=== PATIENT | male | born 1975 | race African-American/Black ===

== ENCOUNTER 2017-08-22 18:11 | Emergency (ER) | payer BC, OTHER ==
[~2017-08-22] VITALS: Ht 170.2 cm; Wt 117.9 kg
[2017-08-22] MEDS ORDERED: KETOROLAC 60 MG/2 ML VIAL IM ONE (19:00)
[2017-08-22] MEDS ORDERED: CYCL10TA9 PO (19:02)
[2017-08-22] MEDS ORDERED: METH4TAB PO (19:02)
--- NOTE | 2017-08-22 19:04 | ED Back Pain ---
General Chief Complaint: General Problems/Pain Stated Complaint: HIP,BACK,THIGH PAIN;RIGHT SIDE Nursing Triage Note: AMB TO ROOM C/O R HIP AND THIGH PAIN FOR ON AND OFF FOR 2 YEARS. 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) History of Present Illness Date Seen by Provider: Aug 22, 2017 Time Seen by Provider: 18:35 Initial Comments PT ARRIVES VIA POV--STATES HE DROVE HIMSELF C/O LOWER BACK PAIN, MOSTLY ON THE RIGHT, THAT RADIATES TO RIGHT LATERAL HIP AREA AND DOWN ANTERIOR RIGHT THIGH STATES THIS HAS BEEN GOING ON FOR OVER 2 YEARS NO INJURY AT ANY TIME STATES IT "FLARED UP A COUPLE OF WEEKS AGO" STATES PAIN IS ONLY WITH STANDING NO PARESTHESIAS OR MOTOR DEFICITS NO PROBLEMS WITH BOWEL OR BLADDER FUNCTION TOOK TYLENOL SOMETIME EARLIER TODAY--THINKS AROUND 1300 TODAY, AND HAS APPLIED OVER THE COUNTER TOPICAL MEDICATION WITHOUT RELIEF. STATES HE HAS NEVER SOUGHT CARE AT ANY TIME FOR THIS PROBLEM, AND SYMPTOMS NOW ARE EXACTLY THE SAME AND NO DIFFERENT IN ANY WAY FROM WHAT HE HAS EXPERIENCED IN THE PAST. 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 PT STATES HE IS FROM [place] AND IS "HERE VISITING A FRIEND FOR THE WEEKEND" ( TODAY IS SUNDAY ) Allergies and Home Medications Allergies Coded Allergies: aspirin (Verified Allergy, Unknown, 08/22/17) Home Medications Cyclobenzaprine HCl 10 Mg Tablet, 10 MG PO Q8H Prescribed by: FREDDIE MCCLAIN on 08/22/171901 Methylprednisolone 4 Mg Tab.ds.pk, 4 MG PO UD Prescribed by: FREDDIE MCCLAIN on 08/22/171901 Patient Home Medication List Home Medication List Reviewed: Yes Constitutional: no symptoms reported Gastrointestinal: no symptoms reported Genitourinary: no symptoms reported Musculoskeletal: see HPI Skin: no symptoms reported Psychiatric/Neurological: No Symptoms Reported Past Nuapjbf-Tnopck-Uaoofa Hx Patient Social History Alcohol Use: Regular Use ("COUPLE OF BEERS" IN EVENINGS) Recreational Drug Use: No (DENIES) Smoking Status: Current Everyday Smoker (1 PACK/WEEK) Type Used: Cigarettes (1 PACK/WEEK) Recent Foreign Travel: No Contact w/Someone Who Travel: No Recent Infectious Disease Expo: No Surgeries History of Surgeries: Yes (REPAIR OF LACERATION TO RIGHT MIDDLE FINGER) Surgeries: Orthopedic Respiratory History of Respiratory Disorde: No Cardiovascular History of Cardiac Disorders: No Neurological History of Neurological Disord: No Genitourinary History of Genitourinary Disor: No Gastrointestinal History of Gastrointestinal Di: No Musculoskeletal History of Musculoskeletal Dis: Yes (CHRONIC LOWER BACK PAIN, RADIATING TO RIGHT HIP AND ANTERIOR THIGH) Musculoskeletal Disorders: Chronic Back Pain Endocrine History of Endocrine Disorders: No HEENT History of HEENT Disorders: No Cancer History of Cancer: No Psychosocial History of Psychiatric Problem: No Integumentary History of Skin or Integumenta: No Physical Exam Vital Signs Vital Signs - First Documented 08/22/17 18:30 Temp 98.6 Pulse 100 Resp 18 B/P (MAP) 137/108 (118) Pulse Ox 95 O2 Delivery Room Air Capillary Refill : Less Than 3 Seconds General Appearance: No Apparent Distress, WD/WN, Other (VERY FLAT AFFECT. ) HEENT: PERRL/EOMI Neck: Full Range of Motion, Normal Inspection, Non Tender, Supple Cardiovascular: Regular Rate, Rhythm, No Edema, No JVD, No Murmur, Normal Peripheral Pulses Respiratory: Normal Breath Sounds, No Accessory Muscle Use, No Respiratory Distress Peripheral Pulses: 1+ Dorsalis Pedis (R), 1+ Left Dors-Pedis (L) Gastrointestinal: Non Tender, Soft Back: Normal Inspection, No CVA Tenderness, No Vertebral Tenderness, Other (DTR 'S +1/4 BILATERALLY. MOTOR/SENSORY/VASCULAR INTACT BILATERALLY. NEGATIVE STRAIGHT LEG RAISING. NO TENDERNESS TO PALPATION, STATES PAIN IS ONLY ON STANDING. 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 Departure Impression Impression: Primary Impression: Radicular pain of right lower back Additional Impression: Chronic radicular pain of lower back Disposition: 01 HOME, SELF-CARE Condition: Stable Departure-Patient Inst. Referrals: NO,LOCAL PHYSICIAN (PCP) Primary Care Physician Patient Instructions: CHRONIC PAIN, Low Back Pain (DC), Sciatica (DC), Sciatica Exercises Add. Discharge Instructions: ALTERNATE ICE AND HEAT TO SORE AREAS AT 20 MINUTE INTERVALS FOLLOW UP WITH OF KATE IN 3-4 DAYS FOR FURTHER CARE All discharge instructions reviewed with patient and/or family. Voiced understanding. Scripts Methylprednisolone (Medrol) 4 Mg Tab.ds.pk 4 MG PO UD, #1 PKG Prov: FREDDIE MCCLAIN DO 08/22/17 Cyclobenzaprine HCl (Cyclobenzaprine HCl) 10 Mg Tablet 10 MG PO Q8H, #15 TAB Prov: FREDDIE MCCLAIN DO 08/22/17 FREDDIE MCCLAIN DO Aug 22, 2017 19:04
[2017-08-22 19:17] VITALS: BP 154/104
== END 2017-08-22 19:17 | disposition home or self-care (01) ==
LOC: ER 18:14
DX: G89.29 Other chronic pain (principal); M54.16 Radiculopathy, lumbar region; F17.210 Nicotine dependence, cigarettes, uncomplicated; Z88.6 Allergy status to analgesic agent
CPT/HCPCS: 96372; 99284

== ENCOUNTER 2017-08-24 14:24 | Emergency (ER) | payer BC ==
[~2017-08-24] VITALS: Ht 170.2 cm; Wt 117.9 kg
[~2017-08-24 14:24] MED LIST: CYCL10TA9 PO; METH4TAB PO
[2017-08-24] MEDS ORDERED: KETOROLAC 60 MG/2 ML VIAL IM STA (16:33)
--- NOTE | 2017-08-24 16:44 | ED Back Pain ---
General Chief Complaint: Back Problems Stated Complaint: SIDE AND BACK PAIN Nursing Triage Note: PT STATES HAS BACK PAIN FOR A YEAR STARTED GETTING WORSE WAS SEEN IN ED ON SUNDAY. NOT BETTER. PT CO OF LOW BACK PAIN AND GOES DOWN R LEG. 02/25 RATED PAIN Nursing Sepsis Screen: No Definite Risk Source of Information: Patient Exam Limitations: No Limitations History of Present Illness Date Seen by Provider: Aug 24, 2017 Time Seen by Provider: 16:25 Initial Comments Here with complaint of back pain that has been intermittent for the last year. It's on the right side and radiates down to the right thigh. Denies bowel or bladder incontinence. Denies numbness between his legs. Denies weakness. States it's worse when transitioning between lying and sitting and sitting and standing and better when walking. No known recent injury. 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 They have not helped as of yet. Timing/Duration: 1 Week Severity: Moderate Pain/Injury Location: Back Radiation: Buttocks, Upper Legs Method of Injury: Unknown Modifying Factors: Worse With Movement, Improves With Rest Associated Symptoms: No muscle spasms, No fever, No weakness, No numbness in legs/feet, No tingling in legs/feet, No sensory/motor loss, lower back pain, No loss of bladder control, No loss of bowel control Allergies and Home Medications Allergies Coded Allergies: aspirin (Verified Allergy, Unknown, 08/22/17) Home Medications Cyclobenzaprine HCl 10 Mg Tablet, 10 MG PO Q8H Prescribed by: FREDDIE MCCLAIN on 08/22/171901 Methylprednisolone 4 Mg Tab.ds.pk, 4 MG PO UD Prescribed by: FREDDIE MCCLAIN on 08/22/171901 Patient Home Medication List Home Medication List Reviewed: Yes Constitutional: see HPI, No chills, No fever Respiratory: no symptoms reported Cardiovascular: no symptoms reported Musculoskeletal: see HPI, back pain, muscle pain Psychiatric/Neurological: See HPI Past Croofor-Uvgnei-Zibqyi Hx Patient Social History Alcohol Use: Denies Use Recreational Drug Use: No Smoking Status: Current Everyday Smoker Type Used: Cigarettes Recent Foreign Travel: No Contact w/Someone Who Travel: No Recent Infectious Disease Expo: No Surgeries History of Surgeries: Yes (REPAIR OF LACERATION TO RIGHT MIDDLE FINGER) Surgeries: Orthopedic Respiratory History of Respiratory Disorde: No Cardiovascular History of Cardiac Disorders: No Neurological History of Neurological Disord: No Genitourinary History of Genitourinary Disor: No Gastrointestinal History of Gastrointestinal Di: No Musculoskeletal History of Musculoskeletal Dis: Yes (CHRONIC LOWER BACK PAIN, RADIATING TO RIGHT HIP AND ANTERIOR THIGH) Musculoskeletal Disorders: Chronic Back Pain Endocrine History of Endocrine Disorders: No HEENT History of HEENT Disorders: No Cancer History of Cancer: No Psychosocial History of Psychiatric Problem: No Integumentary History of Skin or Integumenta: No Reviewed Nursing Assessment Reviewed/Agree w Nursing PMH: Yes Family Medical History Significant Family History: No Pertinent Family Hx Physical Exam Vital Signs Vital Signs - First Documented 08/24/17 15:00 Temp 97.9 Pulse 109 Resp 18 B/P (MAP) 146/93 (110) Pulse Ox 97 Capillary Refill : Less Than 3 Seconds General Appearance: No Apparent Distress, WD/WN Cardiovascular: Regular Rate, Rhythm, No Murmur Respiratory: Lungs Clear, Normal Breath Sounds Back: No CVA Tenderness, No Vertebral Tenderness, Other (mild tenderness to the right low back at the area of L5-S1.) Extremity: Normal Range of Motion, No Calf Tenderness, No Pedal Edema, Other ( reproduces pain on right straight leg raise while sitting.) Neurologic/Psychiatric: Alert, Oriented x3, No Motor/Sensory Deficits, Normal Mood/Affect Skin: Normal Color, Warm/Dry Progress/Results/Core Measures Results/Orders My Orders Orders - GAEL DURAN MD Ketorolac Injection (Toradol Injection) (08/24/17 16:33) Ct Lumbar Spine Wo (08/24/17 16:33) Vital Signs/I&O Vital Sign - Last 12Hours 08/24/17 15:00 Temp 97.9 Pulse 109 Resp 18 B/P (MAP) 146/93 (110) Pulse Ox 97 Blood Pressure Mean: 110 Progress Note : Progress Note Seen and evaluated. L-spine CT ordered. Toradol 60 mg IM ordered. Monitor patient. 1710:Findings on CT. Discharged home with return precautions. Patient verbalize understanding instructions and agreement with plan. Diagnostic Imaging Diagonstic Imaging: CT Plain Films/CT/US/NM/MRI: other Comments VIA [facility]. [place], [place] NAME: RICARDA MONTAGUE [facility] REC#: [id number] PT STATUS: REG ER : 1975 PHYSICIAN: GAEL DURAN MD ADMIT DATE: 08/24/17/ER Draft Date of Exam:08/24/17 CT LUMBAR SPINE WO PROCEDURE: CT lumbar spine without contrast. TECHNIQUE: Multiple contiguous axial images were obtained through the lumbar spine without the use of intravenous contrast. Sagittal and coronal reformations were then performed. INDICATION: Back pain for one year. COMPARISON: None available. FINDINGS: No acute fracture or traumatic malalignment. No significant spinal stenosis or foraminal narrowing by CT. No spondylolisthesis. Pseudarthrosis between the right transverse process of L5 and the sacrum. No ankylosis of vertebral body or posterior elements. SI joints are normal. Visualized aspects of the retroperitoneum show no abnormality. IMPRESSION: 1. No fracture or malalignment of the lumbar spine. 2. No significant spinal stenosis or foraminal narrowing by CT. Dictated on workstation # [id number] Dict: 08/24/17 1654 Trans: 08/24/17 1657 [facility] [id number] Interpreted by: MICKEY HICKS MD Electronically signed by: Departure Impression Impression: Primary Impression: Sciatica, right side Disposition: 01 HOME, SELF-CARE Condition: Stable Departure-Patient Inst. Referrals: NO,LOCAL PHYSICIAN (PCP/Family) Primary Care Physician Patient Instructions: Radiculopathy (DC), Sciatica (DC) Add. Discharge Instructions: All discharge instructions reviewed with patient and/or family. Voiced understanding. Continue previously prescribed medications. You may take Aleve or generic 2 tablets twice daily for the next few days and then as needed. Take other medications as prescribed. Return for worsening, fever, vomiting, weakness, problems walking or going to the bathroom or other concerns as needed. Scripts Hydrocodone Bit/Acetaminophen (Hydrocodone/Acetaminophen 5/325mg Tablet) 1 Tab Tab 1-2 EACH PO Q6H Y for PAIN-MODERATE, #16 TAB 0 Refills Prov: GAEL DURAN MD 08/24/17 Work/School Note: [employer] GAEL DURAN MD Aug 24, 2017 16:44
--- NOTE | 2017-08-24 16:58 | Diagnostic Imaging Report ---
PROCEDURE: CT lumbar spine without contrast. TECHNIQUE: Multiple contiguous axial images were obtained through the lumbar spine without the use of intravenous contrast. Sagittal and coronal reformations were then performed. INDICATION: Back pain for one year. COMPARISON: None available. FINDINGS: No acute fracture or traumatic malalignment. No significant spinal stenosis or foraminal narrowing by CT. No spondylolisthesis. Pseudarthrosis between the right transverse process of L5 and the sacrum. No ankylosis of vertebral body or posterior elements. SI joints are normal. Visualized aspects of the retroperitoneum show no abnormality. IMPRESSION: 1. No fracture or malalignment of the lumbar spine. 2. No significant spinal stenosis or foraminal narrowing by CT. Dictated by: Dictated on workstation # [id number]
[2017-08-24] MEDS ORDERED: ACHD5005 PO (17:19)
[2017-08-24 17:26] VITALS: BP 146/93
== END 2017-08-24 17:26 | disposition home or self-care (01) ==
LOC: EDUNIT# 14:24 → ER 14:26
DX: M54.41 Lumbago with sciatica, right side (principal); F17.210 Nicotine dependence, cigarettes, uncomplicated; Z87.828 Personal history of other (healed) physical injury and trauma
CPT/HCPCS: 72131

== ENCOUNTER 2017-09-07 17:58 | Emergency (ER) | payer BC ==
[~2017-09-07] VITALS: Ht 170.2 cm; Wt 117.9 kg
[~2017-09-07 17:58] MED LIST changes: +ACHD5005 PO
[2017-09-07] MEDS ORDERED: RX-CYCLOBENZAPRINE 10 MG (FLEXERIL) TAB PPK#3 PO STA (20:31)
--- NOTE | 2017-09-07 20:39 | ED Back Pain ---
General Chief Complaint: Lower Extremity Stated Complaint: R LEG PAIN Nursing Triage Note: Pt c/o R leg pain. Pt was seen and treated for sciatica and prescribed steroids and pain pills. Pt reports pain improved some but is still hurting. Nursing Sepsis Screen: No Definite Risk Source of Information: Patient Exam Limitations: No Limitations History of Present Illness Date Seen by Provider: Sep 07, 2017 Time Seen by Provider: 20:10 Initial Comments 42-year-old male patient presents to the emergency department complains of low back pain radiating down the right lower extremity. Allergies and Home Medications Allergies Coded Allergies: aspirin (Verified Allergy, Unknown, 08/22/17) Home Medications No Active Prescriptions or Reported Meds Past Xllnkml-Rohoxn-Xnycqb Hx Patient Social History Alcohol Use: Denies Use Recreational Drug Use: No Smoking Status: Current Everyday Smoker Type Used: Cigarettes 2nd Hand Smoke Exposure: Yes Recent Foreign Travel: No Contact w/Someone Who Travel: No Recent Infectious Disease Expo: No Recent Hopitalizations: No Seasonal Allergies Seasonal Allergies: No Surgeries History of Surgeries: Yes (REPAIR OF LACERATION TO RIGHT MIDDLE FINGER) Surgeries: Orthopedic Respiratory History of Respiratory Disorde: No Cardiovascular History of Cardiac Disorders: No Neurological History of Neurological Disord: No Genitourinary History of Genitourinary Disor: No Gastrointestinal History of Gastrointestinal Di: No Musculoskeletal History of Musculoskeletal Dis: Yes (CHRONIC LOWER BACK PAIN, RADIATING TO RIGHT HIP AND ANTERIOR THIGH) Musculoskeletal Disorders: Chronic Back Pain Endocrine History of Endocrine Disorders: No HEENT History of HEENT Disorders: No Cancer History of Cancer: No Psychosocial History of Psychiatric Problem: No Integumentary History of Skin or Integumenta: No Family Medical History Significant Family History: No Pertinent Family Hx Physical Exam Vital Signs Vital Signs - First Documented 09/07/17 18:23 Temp 98.5 Pulse 105 Resp 18 B/P (MAP) 147/97 (114) Pulse Ox 96 O2 Delivery Room Air Capillary Refill : Less Than 3 Seconds Progress/Results/Core Measures Results/Orders My Orders Orders - RASHARD VINCENT Prednisone Tablet (Deltasone Tablet) (09/07/17 20:45) Rx-Hydrocodone/Apap 5-325 Mg (Rx-Vicodin (09/07/17 20:45) Rx-Cyclobenzaprine Tablet (Rx-Flexeril T (09/07/17 20:31) Vital Signs/I&O Vital Sign - Last 12Hours 09/07/17 18:23 Temp 98.5 Pulse 105 Resp 18 B/P (MAP) 147/97 (114) Pulse Ox 96 O2 Delivery Room Air Blood Pressure Mean: 114 Departure Impression Impression: Primary Impression: Lumbar radiculopathy, right Disposition: 01 HOME, SELF-CARE Condition: Improved Departure-Patient Inst. Decision time for Depature: 20:35 Referrals: NO,LOCAL PHYSICIAN (PCP/Family) Primary Care Physician Patient Instructions: Radiculopathy Add. Discharge Instructions: All discharge instructions reviewed with patient and/or family. Voiced understanding. Medications as instructed. Ibuprofen 800 mg by mouth every 8 hours as needed for pain. Use a heating pad or pack as needed for pain. Avoid heavy lifting for 3-5 days. Follow-up with your primary care provider for recheck and possible need for an outpatient MRI if no improvement in symptoms in 7-10 days. Call for appointment time if needed. Return to the emergency department for worsened symptoms, numbness of the genital area, numbness of the lower extremities, bowel incontinence, bladder incontinence, or any other concerns. Scripts Hydrocodone Bit/Acetaminophen (Hydrocodone/Acetaminophen 5/325mg Tablet) 1 Tab Tab 1 TAB PO Q6H Y for pain, #14 TAB 0 Refills Prov: RASHARD VINCENT 09/07/17 Orphenadrine Citrate (Orphenadrine Citrate) 100 Mg Tablet.er 100 MG PO BID Y for SPASMS, #10 TAB 0 Refills Prov: RASHARD VINCENT 09/07/17 Prednisone (Prednisone) 10 Mg Tab 10 MG PO UD, #2 TAB 0 Refills 40 mg po daily 2 days, then 30 mg po daily 2 days, then 20 mg po daily 2 days, then 10 mg po daily 2 days. Prov: RASHARD VINCENT 09/07/17 RASHARD VINCENT Sep 07, 2017 20:39
[2017-09-07] MEDS ORDERED: ORPH100T PO (20:42)
[2017-09-07] MEDS ORDERED: ACHD5005 PO (20:42)
[2017-09-07] MEDS ORDERED: PRD10T PO (20:42)
[2017-09-07] MEDS ORDERED: predniSONE 20 MG TAB PO ONE (20:45)
[2017-09-07] MEDS ORDERED: RX-HYDROCODONE/APAP 5/325 MG #4 TAB PK PO PRN (20:45)
[2017-09-07 20:55] VITALS: BP 138/88
== END 2017-09-07 20:49 | disposition home or self-care (01) ==
LOC: EDUNIT# 17:58 → ER 17:59
DX: M54.16 Radiculopathy, lumbar region (principal); F17.210 Nicotine dependence, cigarettes, uncomplicated; Z79.82 Long term (current) use of aspirin
CPT/HCPCS: 99283

== ENCOUNTER 2017-12-14 16:48 | Emergency (ER) | payer BC ==
[~2017-12-14] VITALS: Ht 170.2 cm; Wt 117.9 kg
[~2017-12-14 16:48] MED LIST changes: +ORPH100T PO; +PRD10T PO
--- NOTE | 2017-12-14 17:47 | ED General ---
General Chief Complaint: General Problems/Pain Stated Complaint: KIDNEY PAIN Nursing Triage Note: PATIENT HERE FOR PAIN THAT HAS BEEN GOING ON FOR 2.5 WEEKS. hE STATES IT IS A TIGHTENING IN HIS LOWER BACK THAT IS WORSE WITH SITTING. CLAIMS HE WAS HERE FOR SCIATIC PAIN IN AUGUST. Nursing Sepsis Screen: No Definite Risk Source of Information: Patient Exam Limitations: No Limitations (NIA HORN MD) History of Present Illness Date Seen by Provider: Dec 14, 2017 Time Seen by Provider: 17:43 Initial Comments The patient is a 42-year-old black male who presents with a 2-1/2 week history of low back pain. He was ports that he had a back injury while in the [employer] in the late . There has been no apparent trigger at this time. He reports that there is more pain when sitting than standing. He has no problem in bed. There is some tingling down the back of the legs on occasion. He has not noted any weakness. (NIA HORN MD) Allergies and Home Medications Allergies Coded Allergies: aspirin (Verified Allergy, Unknown, 08/22/17) Home Medications Hydrocodone Bit/Acetaminophen 1 Tab Tab, 1 TAB PO Q6H PRN for pain Prescribed by: RASHARD VINCENT on 09/07/172041 Orphenadrine Citrate 100 Mg Tablet.er, 100 MG PO BID PRN for SPASMS Prescribed by: RASHARD VINCENT on 09/07/172041 Prednisone 10 Mg Tab, 10 MG PO UD 40 mg po daily 2 days, then 30 mg po daily 2 days, then 20 mg po daily 2 days, then 10 mg po daily 2 days. Prescribed by: RASHARD VINCENT on 09/07/172041 Patient Home Medication List Home Medication List Reviewed: Yes (VAISHNAVI COSBY) Review of Systems Constitutional: see HPI EENTM: no symptoms reported Respiratory: no symptoms reported Cardiovascular: no symptoms reported Gastrointestinal: no symptoms reported Genitourinary: no symptoms reported Musculoskeletal: back pain Skin: no symptoms reported Psychiatric/Neurological: No Symptoms Reported Hematologic/Lymphatic: No Symptoms Reported Immunological/Allergic: no symptoms reported (NIA HORN MD) Past Waocfkg-Khescd-Hewbez Hx Patient Social History Alcohol Use: Occasionally Uses Recreational Drug Use: No Smoking Status: Current Everyday Smoker Type Used: Cigarettes 2nd Hand Smoke Exposure: Yes Recent Foreign Travel: No Contact w/Someone Who Travel: No Recent Infectious Disease Expo: No Recent Hopitalizations: No Physical Abuse: No Sexual Abuse: No (NIA HORN MD) Seasonal Allergies Seasonal Allergies: No (NIA HORN MD) Past Medical History Surgeries: Yes (REPAIR OF LACERATION TO RIGHT MIDDLE FINGER) Orthopedic Respiratory: No Cardiac: No Neurological: No Genitourinary: No Gastrointestinal: No Musculoskeletal: Yes (CHRONIC LOWER BACK PAIN, RADIATING TO RIGHT HIP AND ANTERIOR THIGH) Chronic Back Pain Endocrine: No HEENT: No Cancer: No Psychosocial: No Nursing Suicide Risk Score: 0 Integumentary: No (NIA HORN MD) Family Medical History No Pertinent Family Hx (NIA HORN MD) Physical Exam Vital Signs Vital Signs - First Documented 12/14/17 17:05 Temp 98.6 Pulse 92 Resp 18 B/P (MAP) 139/104 (116) Pulse Ox 98 (ALEA,VAISHNAVI J) Vital Signs Capillary Refill : Less Than 3 Seconds (NIA HORN MD) General Appearance: Mild Distress Eyes: Bilateral Eye Normal Inspection HEENT: Normal ENT Inspection Neck: Full Range of Motion Respiratory: Chest Non Tender, Lungs Clear, Normal Breath Sounds, No Accessory Muscle Use, No Respiratory Distress Cardiovascular: Regular Rate, Rhythm, No Edema, No Gallop, No JVD, No Murmur, Normal Peripheral Pulses Gastrointestinal: Normal Bowel Sounds, No Organomegaly, No Pulsatile Mass, Non Tender, Soft Back: Normal Inspection, Vertebral Tenderness Neurologic/Psychiatric: Alert, Oriented x3 Skin: Normal Color, Warm/Dry Lymphatic: No Adenopathy (NIA HORN MD) Progress/Results/Core Measures Suspected Sepsis Recent Fever Within 48 Hours: No Infection Criteria Present: None New/Unexplained Altered Menta: No Sepsis Screen: No Definite Risk SIRS Temperature:98.6 Pulse: 92 Respiratory Rate: 18 Blood Pressure 139 /104 Mean: 116 (NIA HORN MD) Results/Orders Lab Results Laboratory Tests Test 12/14/17 17:15 12/14/17 17:50 Range/Units Urine Color YELLOW Urine Clarity CLEAR Urine pH 5 5-9 Urine Specific [place] 1.025 H 1.016-1.022 Urine Protein 2+ H NEGATIVE Urine Glucose (UA) NEGATIVE NEGATIVE Urine Ketones 1+ H NEGATIVE Urine Nitrite NEGATIVE NEGATIVE Urine Bilirubin 1+ H NEGATIVE Urine Urobilinogen 1 NORMAL MG/DL Urine Leukocyte Esterase 1+ H NEGATIVE Urine RBC (Auto) NEGATIVE NEGATIVE Urine RBC NONE /HPF Urine WBC RARE /HPF Urine Squamous Epithelial Cells NONE /HPF Urine Crystals NONE /LPF Urine Bacteria NEGATIVE /HPF Urine Casts NONE /LPF Urine Mucus MODERATE H /LPF Urine Culture Indicated NO White Blood Count 9.4 4.3-11.0 10^3/uL Red Blood Count 4.84 4.35-5.85 10^6/uL Hemoglobin 14.4 13.3-17.7 G/DL Hematocrit 42 40-54 % Mean Corpuscular Volume 87 80-99 FL Mean Corpuscular Hemoglobin 30 25-34 PG Mean Corpuscular Hemoglobin Concent 34 32-36 G/DL Red Cell Distribution Width 12.8 10.0-14.5 % Platelet Count 286 130-400 10^3/uL Mean Platelet Volume 10.0 7.4-10.4 FL Neutrophils (%) (Auto) 64 42-75 % Lymphocytes (%) (Auto) 25 12-44 % Monocytes (%) (Auto) 10 0-12 % Eosinophils (%) (Auto) 1 0-10 % Basophils (%) (Auto) 0 0-10 % Neutrophils # (Auto) 6.0 1.8-7.8 X 10^3 Lymphocytes # (Auto) 2.4 1.0-4.0 X 10^3 Monocytes # (Auto) 0.9 0.0-1.0 X 10^3 Eosinophils # (Auto) 0.1 0.0-0.3 10^3/uL Basophils # (Auto) 0.0 0.0-0.1 10^3/uL Sodium Level 137 135-145 MMOL/L Potassium Level 4.1 3.6-5.0 MMOL/L Chloride Level 102 98-107 MMOL/L Carbon Dioxide Level 24 21-32 MMOL/L Anion Gap 11 5-14 MMOL/L Blood Urea Nitrogen 13 7-18 MG/DL Creatinine 0.96 0.60-1.30 MG/DL Estimat Glomerular Filtration Rate > 60 BUN/Creatinine Ratio 14 Glucose Level 98 70-105 MG/DL Calcium Level 10.1 8.5-10.1 MG/DL Total Bilirubin 1.2 H 0.1-1.0 MG/DL Aspartate Amino Transf (AST/SGOT) 23 5-34 U/L Alanine Aminotransferase (ALT/SGPT) 22 0-55 U/L Alkaline Phosphatase 66 40-136 U/L Total Protein 8.6 H 6.4-8.2 GM/DL Albumin 4.6 H 3.2-4.5 GM/DL (VAISHNAVI COSBY) My Orders Orders - VAISHNAVI COSBY Ketorolac Injection (Toradol Injection) (12/14/17 18:30) Ct Lumbar Spine Wo (12/14/17 18:22) (VAISHNAVI COSBY) Medications Given in ED Current Medications Medications Dose Ordered Sig/Rio Route Start Time Stop Time Status Last Admin Dose Admin Ketorolac Tromethamine 30 mg ONCE ONCE IVP 12/14/17 18:30 12/14/17 18:31 DC 12/14/17 18:41 30 MG (VAISHNAVI COSBY) Vital Signs/I&O 12/14/17 17:05 Temp 98.6 Pulse 92 Resp 18 B/P (MAP) 139/104 (116) Pulse Ox 98 (VAISHNAVI COSBY) Vital Signs/I&O Capillary Refill : Less Than 3 Seconds (NIA HORN MD) Blood Pressure Mean: 116 Progress Note : Time: 18:17 Progress Note Met with and examined the patient and his story sounds like he's having problems with an acute exacerbation of chronic with done a lot of counseling on appropriate NSAID and Tylenol use as well as icy hot and heating pads and back braces. Back pain for the past 2 weeks that is more on the right than left and he's had some chronic sciatic pain with radiation down his right leg again this episode. Has not been any trauma associated with this back pain at this time. 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 He is only having the shooting sciatic pain on the right side but he goes all the way down to his toes worse when he bends all over. Better when he sits up and best when he stands up or walks around. He took Aleve once in the last 2 weeks and did not feel it helped much. He's reported here because in the past few months ago he had a similar back pain episode just like this and he got around of steroids, hydrocodone and some Naprosyn and that made it better after a couple rounds of steroids. She does not have a primary care doctor. [facility]. 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 Discussed the case with Dr. Murillo and there is some concern there may be some spinal stenosis given the chronicity of his back pain and how is made better by standing up going upstairs and worse by sitting down or bending over. With his history of never been imaged of his back and his sciatic sounding pain that travels all the way to his toe on one side we have encouraged him to set up MRI imaging with the PCP but he says he does not have one. Therefore we discussed doing a CT scan in the ER with his lumbar spine. (VAISHNAVI COSBY) Diagnostic Imaging Diagonstic Imaging: CT Plain Films/CT/US/NM/MRI: other (lumbar spine) Comments 1. No fracture or malalignment of the lumbar spine. 2. No significant spinal stenosis or foraminal narrowing by CT. Reviewed: Reviewed by Me (VAISHNAVI COSBY) Departure Impression Primary Impression: Acute exacerbation of chronic low back pain Additional Impression: Lumbago with sciatica, right side Qualified Codes: M54.41 - Lumbago with sciatica, right side Disposition: 01 HOME, SELF-CARE Condition: Stable Departure-Patient Inst. Decision time for Depature: 19:04 (VAISHNAVI COSBY) Referrals: NO,LOCAL PHYSICIAN (PCP/Family) Primary Care Physician Patient Instructions: Low Back Pain (DC) Add. Discharge Instructions: Use creams such as icy hot or Biofreeze. Use Tylenol 1000 g every 8 hours as needed for pain. Daily you should take 2 tablets of the Naprosyn in the morning and 2 in the evening for the next 2-4 weeks on a schedule. set up worker the prednisone and take 2 tablets daily for the next 5 days. 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 Obtain a back brace and wear it on the days that you need it. If your back pain does not improve please establish care with a primary care provider and explore other options such as extended steroids, physical therapy, referral to specialists. All discharge instructions reviewed with patient and/or family. Voiced understanding. Scripts Prednisone (Prednisone) 20 Mg Tab 40 MG PO DAILY for 5 Days, #10 TAB 0 Refills Prov: VAISHNAVI COSBY 12/14/17 Back Brace (Back Stabilizer) 1 Each Each EACH MC for Back Pain, #1 Prov: VAISHNAVI COSBY 12/14/17 Cyclobenzaprine HCl (Cyclobenzaprine HCl) 10 Mg Tablet 10 MG PO Q8H PRN for SPASMS, #15 TAB 0 Refills Prov: VAISHNAVI COSBY 12/14/17 Hydrocodone/Acetaminophen (Hydrocodone-Acetamin 5-325 mg) 1 Each Tablet 1 EACH PO Q4H PRN for BREAKTHROUGH PAIN for 7 Days, #12 TAB 0 Refills Prov: VAISHNAVI COSBY 12/14/17 NIA HORN MD Dec 14, 2017 17:47 VAISHNAVI COSBY Dec 14, 2017 18:22
[2017-12-14 17:53] LABS: CLARITY,URINE CLEAR; COLOR,URINE YELLOW; GLUCOSE, URINE (UA) NEGATIVE (NEGATIVE); KETONES,URINE 1+ (NEGATIVE); LEUKOCYTE ESTERASE ,URINE 1+ (NEGATIVE); NITRITE,URINE NEGATIVE (NEGATIVE); PH,URINE 5 (5-9); PROTEIN,URINE 2+ (NEGATIVE); UROBILINOGEN,URINE 1 MG/DL (NORMAL)
[2017-12-14 17:56] LABS: BASOPHILS % (AUTO) 0 % (0-10); EOSINOPHILS # (AUTO) 0.1 10^3/uL (0.0-0.3); EOSINOPHILS % (AUTO) 1 % (0-10); HEMATOCRIT 42 % (40-54); HEMOGLOBIN 14.4 G/DL (13.3-17.7); LYMPHOCYTES # (AUTO) 2.4 X 10^3 (1.0-4.0); LYMPHOCYTES % (AUTO) 25 % (12-44); MEAN CORPUSCULAR HEMOGLOBIN 30 PG (25-34); MEAN CORPUSCULAR HGB CONC 34 G/DL (32-36); MEAN CORPUSCULAR VOLUME 87 FL (80-99); MONOCYTES # (AUTO) 0.9 X 10^3 (0.0-1.0); MONOCYTES % (AUTO) 10 % (0-12); NEUTROPHILS % (AUTO) 64 % (42-75); PLATELET COUNT 286 10^3/uL (130-400); RED BLOOD COUNT 4.84 10^6/uL (4.35-5.85); RED CELL DISTRIBUTION WIDTH 12.8 % (10.0-14.5); WHITE BLOOD COUNT 9.4 10^3/uL (4.3-11.0)
[2017-12-14 18:04] LABS: BACTERIA,URINE NEGATIVE /HPF; BILIRUBIN,URINE 1+ (NEGATIVE); WBC,URINE RARE /HPF
[2017-12-14 18:21] LABS: ALANINE AMINOTRANSFERASE 22 U/L (0-55); ALBUMIN 4.6 GM/DL (3.2-4.5); ALKALINE PHOSPHATASE 66 U/L (40-136); BILIRUBIN,TOTAL 1.2 MG/DL (0.1-1.0); BUN/CREATININE RATIO 14; CALCIUM 10.1 MG/DL (8.5-10.1); CARBON DIOXIDE 24 MMOL/L (21-32); CHLORIDE 102 MMOL/L (98-107); CREATININE SERUM 0.96 MG/DL (0.60-1.30); GFR ESTIMATED > 60; GLUCOSE 98 MG/DL (70-105); POTASSIUM 4.1 MMOL/L (3.6-5.0); SODIUM 137 MMOL/L (135-145); TOTAL PROTEIN 8.6 GM/DL (6.4-8.2)
[2017-12-14] MEDS ORDERED: KETOROLAC 30 MG/ML VIAL IVP ONE (18:30)
[2017-12-14] MEDS ORDERED: BACK1EAC9 MC (19:08)
[2017-12-14] MEDS ORDERED: HYDR-3812 PO (19:08)
[2017-12-14] MEDS ORDERED: CYCL10TA9 PO (19:08)
--- NOTE | 2017-12-14 19:08 | Diagnostic Imaging Report ---
PROCEDURE: CT lumbar spine without contrast. TECHNIQUE: Multiple contiguous axial images were obtained through the lumbar spine without the use of intravenous contrast. Sagittal and coronal reformations were then performed. INDICATION: Low-back pain. No known injury. COMPARISON: CT lumbar spine from 08/24/2017 FINDINGS: No acute fracture or traumatic malalignment. No significant spinal stenosis or foraminal narrowing by CT. No spondylolisthesis. Unchanged pseudarthrosis between the right transverse process of L5 and the sacrum. No ankylosis of vertebral body or posterior elements. SI joints are normal. Visualized aspects of the retroperitoneum show no abnormality. IMPRESSION: 1. No fracture or malalignment of the lumbar spine. 2. No change in CT since 08/24/2017. Dictated by: Dictated on workstation # [id number]
[2017-12-14] MEDS ORDERED: PRD20T PO (19:23)
[2017-12-14 20:02] VITALS: BP 143/109
== END 2017-12-14 20:02 | disposition home or self-care (01) ==
LOC: EDUNIT# 16:48 → ER 16:49
DX: M54.41 Lumbago with sciatica, right side (principal); F17.210 Nicotine dependence, cigarettes, uncomplicated; Z98.890 Other specified postprocedural states; Z88.8 Allergy status to other drugs, medicaments and biological substances
CPT/HCPCS: 36415; 72131; 80053; 81000; 85025; 96374

== ENCOUNTER 2019-01-26 14:36 | Emergency (ER) | payer BC ==
[~2019-01-26] VITALS: Ht 170.2 cm; Wt 117.9 kg
[~2019-01-26 14:36] MED LIST changes: +BACK1EAC9 MC; +HYDR-3812 PO; +PRD20T PO
[2019-01-26 15:15] LABS: BILIRUBIN,URINE NEGATIVE (NEGATIVE); CLARITY,URINE CLEAR; COLOR,URINE YELLOW; GLUCOSE, URINE (UA) NEGATIVE (NEGATIVE); KETONES,URINE NEGATIVE (NEGATIVE); LEUKOCYTE ESTERASE ,URINE NEGATIVE (NEGATIVE); NITRITE,URINE NEGATIVE (NEGATIVE); PH,URINE 5 (5-9); PROTEIN,URINE NEGATIVE (NEGATIVE); UROBILINOGEN,URINE NORMAL (NORMAL)
[2019-01-26 15:28] LABS: BACTERIA,URINE NEGATIVE /HPF; RBC,URINE 0-2 /HPF; SQUAMOUS EPITHELIAL CELL,UR RARE /HPF
[2019-01-26 15:30] LABS: AMPHETAMINE SCREEN, URINE NEGATIVE (NEGATIVE); BARBITURATE SCREEN URINE NEGATIVE (NEGATIVE); BENZODIAZEPINES SCREEN URINE NEGATIVE (NEGATIVE); CANNABINOID SCREEN, URINE NEGATIVE (NEGATIVE); COCAINE SCREEN URINE NEGATIVE (NEGATIVE); METHADONE STAT NEGATIVE (NEGATIVE); METHAMPHETAMINE SCREEN URINE S NEGATIVE (NEGATIVE); OPIATE SCREEN URINE NEGATIVE (NEGATIVE); OXYCODONE STAT NEGATIVE (NEGATIVE); PROPOXYPHENE STAT NEGATIVE (NEGATIVE); TRICYCLIC ANTIDEPRESSANTS SCRE NEGATIVE (NEGATIVE)
[2019-01-26] MEDS ORDERED: IBUPROFEN 800 MG (MOTRIN) TAB PO STA (15:47)
[2019-01-26] MEDS ORDERED: CYCLOBENZAPRINE 10 MG (FLEXERIL) TAB PO STA (15:47)
--- NOTE | 2019-01-26 15:56 | ED Back Pain ---
General Chief Complaint: Back Problems Stated Complaint: R SIDE LOWER BACK PAIN Nursing Triage Note: Ambulatory to 2. Pt c/o R lower back pain that radiates down the R leg. Pt reports pain is worse when bending over and when putting pants on. Pt reports pain began a couple of days ago. Pt reports same pain a couple of years ago and is requesting same meds from that visit. Nursing Sepsis Screen: No Definite Risk Source of Information: Patient Exam Limitations: No Limitations History of Present Illness Date Seen by Provider: Jan 26, 2019 Time Seen by Provider: 15:30 Initial Comments 43-year-old male patient presents to the emergency department complaints of r ight low back pain radiating down the right lower extremity. Patient has a history of chronic lumbar radiculopathy. 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 Patient states he is here visiting his girlfriend. Patient reports driving from [place] to [place], [place] on Sunday. Reports chronic pain increased on Sunday. Patient does wear his wallet in the right posterior pocket and states he always has it in his right back pocket (even with driving and sitting). Patient denies recent known injury. He states he did injure his back several years ago. Location: Paraspinous Muscles Timing/Duration: Other (chronic pain, worse last Sunday.) Pain/Injury Location: Back (right low back) Radiation: Other (radiates down the right lower extremity to the level of the toes) Modifying Factors: Worse With Movement, Worse With Other (worse with sitting, standing, and palpation) Associated Symptoms: muscle spasms (right low back); No fever, No weakness, No numbness in legs/feet, No tingling in legs/feet, No sensory/motor loss; lower back pain; No loss of bladder control, No loss of bowel control Allergies and Home Medications Allergies Coded Allergies: aspirin (Verified Allergy, Unknown, 08/22/17) Home Medications Cyclobenzaprine HCl 10 Mg Tablet, 10 MG PO Q8H PRN for SPASMS Prescribed by: VAISHNAVI COSBY on 12/14/171907 Hydrocodone Bit/Acetaminophen 1 Tab Tab, 1 TAB PO Q6H PRN for pain Prescribed by: RASHARD VINCENT on 09/07/172041 Hydrocodone/Acetaminophen 1 Each Tablet, 1 EACH PO Q4H PRN for BREAKTHROUGH PAIN Prescribed by: VAISHNAVI COSBY on 12/14/171907 Meloxicam 15 Mg Tablet, 15 MG PO DAILY Prescribed by: RASHARD VINCENT on 01/26/191603 Orphenadrine Citrate 100 Mg Tablet.er, 100 MG PO BID PRN for SPASMS Prescribed by: RASHARD VINCENT on 09/07/172041 Orphenadrine Citrate 100 Mg Tablet.er, 100 MG PO BID PRN for SPASMS Prescribed by: RASHARD VINCENT on 01/26/191603 Prednisone 10 Mg Tab, 10 MG PO UD 40 mg po daily 2 days, then 30 mg po daily 2 days, then 20 mg po daily 2 days, then 10 mg po daily 2 days. Prescribed by: RASHARD VINCENT on 09/07/172041 Prednisone 20 Mg Tab, 40 MG PO DAILY Prescribed by: VAISHNAVI COSBY on 12/14/171922 Prednisone 20 Mg Tab, 40 MG PO DAILY Prescribed by: RASHARD VINCENT on 01/26/191603 Patient Home Medication List Home Medication List Reviewed: Yes Review of Systems Constitutional: No chills, No fever, No malaise, No weakness Respiratory: No cough, No dyspnea on exertion, No phlegm, No short of breath, No stridor, No wheezing Cardiovascular: No chest pain, No edema, No palpitations Gastrointestinal: No abdominal pain, No constipation, No diarrhea, No loss of appetite, No melena, No nausea, No vomiting Genitourinary: No decreased output, No dysuria, No frequency, No hematuria, No pain Musculoskeletal: see HPI, back pain, joint pain (right lower extremity); No joint swelling, No neck pain Skin: no symptoms reported Psychiatric/Neurological: No Symptoms Reported All Other Systems Reviewed Negative Unless Noted: Yes (Negative excepted noted.) Past Uldtxto-Ftpwsx-Pguftw Hx Past Med/Social Hx: Reviewed Nursing Past Med/Soc Hx Patient Social History Alcohol Use: Regular Use Alcohol Beverage of Choice: Beer Recreational Drug Use: No Type Used: Cigarettes 2nd Hand Smoke Exposure: Yes Recent Foreign Travel: No Contact w/Someone Who Travel: No Recent Infectious Disease Expo: No Recent Hopitalizations: No Physical Abuse: No Sexual Abuse: No Seasonal Allergies Seasonal Allergies: No Past Medical History Surgeries: Yes (REPAIR OF LACERATION TO RIGHT MIDDLE FINGER) Orthopedic Respiratory: No Cardiac: No Neurological: No Genitourinary: No Gastrointestinal: No Musculoskeletal: Yes (CHRONIC LOWER BACK PAIN, RADIATING TO RIGHT HIP AND ANTERIOR THIGH) Chronic Back Pain Endocrine: No HEENT: No Cancer: No Psychosocial: No Integumentary: No Family Medical History Reviewed Nursing Family Hx No Pertinent Family Hx Physical Exam Vital Signs Vital Signs - First Documented 01/26/19 14:40 Temp 98.2 Pulse 108 Resp 16 B/P (MAP) 132/93 (106) Pulse Ox 94 O2 Delivery Room Air Capillary Refill : Less Than 3 Seconds Height, Weight, BMI Height: 5'7.00" Weight: 260lbs. 0oz. [id number]; BMI Method:Stated General Appearance: No Apparent Distress, WD/WN HEENT: PERRL/EOMI, Pharynx Normal Neck: Full Range of Motion, Normal Inspection, Non Tender, Supple Cardiovascular: Regular Rate, Rhythm, No Edema, No Gallop, No Murmur, Normal Peripheral Pulses Respiratory: Lungs Clear, Normal Breath Sounds, No Accessory Muscle Use, No Respiratory Distress Peripheral Pulses: 2+ Dorsalis Pedis (R), 2+ Left Dors-Pedis (L), 2+ Radial Pulses (R), 2+ Radial Pulses (L) Gastrointestinal: Normal Bowel Sounds, No Organomegaly, Non Tender, Soft; No Distended Back: Normal Inspection, No Vertebral Tenderness; No Decreased Range of Motion; Muscle Spasm (right lumbars paraspinous muscle spasm (right greater than left) with mild tenderness palpation) Extremity: Normal Capillary Refill, Normal Inspection, Normal Range of Motion, No Calf Tenderness, No Pedal Edema, Other (right buttock tender to palpation. No deformity or swelling noted.) Neurologic/Psychiatric: Alert, Oriented x3, No Motor/Sensory Deficits, Normal Mood/Affect Skin: Normal Color, Warm/Dry Progress/Results/Core Measures Results/Orders Lab Results Laboratory Tests Test 01/26/19 14:42 Range/Units Urine Color YELLOW Urine Clarity CLEAR Urine pH 5 5-9 Urine Specific [place] 1.020 1.016-1.022 Urine Protein NEGATIVE NEGATIVE Urine Glucose (UA) NEGATIVE NEGATIVE Urine Ketones NEGATIVE NEGATIVE Urine Nitrite NEGATIVE NEGATIVE Urine Bilirubin NEGATIVE NEGATIVE Urine Urobilinogen NORMAL NORMAL MG/DL Urine Leukocyte Esterase NEGATIVE NEGATIVE Urine RBC (Auto) NEGATIVE NEGATIVE Urine RBC 0-2 /HPF Urine WBC NONE /HPF Urine Squamous Epithelial Cells RARE /HPF Urine Crystals NONE /LPF Urine Bacteria NEGATIVE /HPF Urine Casts NONE /LPF Urine Mucus NEGATIVE /LPF Urine Culture Indicated NO Urine Opiates Screen NEGATIVE NEGATIVE Urine Oxycodone Screen NEGATIVE NEGATIVE Urine Methadone Screen NEGATIVE NEGATIVE Urine Propoxyphene Screen NEGATIVE NEGATIVE Urine Barbiturates Screen NEGATIVE NEGATIVE Ur Tricyclic Antidepressants Screen NEGATIVE NEGATIVE Urine Phencyclidine Screen NEGATIVE NEGATIVE Urine Amphetamines Screen NEGATIVE NEGATIVE Urine Methamphetamines Screen NEGATIVE NEGATIVE Urine Benzodiazepines Screen NEGATIVE NEGATIVE Urine Cocaine Screen NEGATIVE NEGATIVE Urine Cannabinoids Screen NEGATIVE NEGATIVE My Orders Orders - RASHARD VINCENT Drug Screen Stat (Urine) (01/26/19 15:07) Ua Culture If Indicated (01/26/19 15:07) Cyclobenzaprine Tablet (Flexeril Tablet) (01/26/19 15:47) Ibuprofen Tablet (Motrin Tablet) (01/26/19 15:47) Vital Signs/I&O 01/26/19 14:40 Temp 98.2 Pulse 108 Resp 16 B/P (MAP) 132/93 (106) Pulse Ox 94 O2 Delivery Room Air Blood Pressure Mean: 106 Departure Communication (Admissions) Patient seen and evaluated. Patient given Flexeril 10 mg 1 dose and ibuprofen 800 mg by mouth 1 dose in the emergency department. Plan for discharge to home with prednisone, Norflex, and Mobic prescriptions. Patient states Tylenol [id number] as directed for pain. Impression Primary Impression: Lumbar back pain with radiculopathy affecting right lower extremity Disposition: 01 HOME, SELF-CARE Condition: Improved Departure-Patient Inst. Decision time for Depature: 16:02 Referrals: NO,LOCAL PHYSICIAN (PCP/Family) Primary Care Physician Patient Instructions: Radiculopathy (DC) Add. Discharge Instructions: All discharge instructions reviewed with patient and/or family. Voiced unders tanding. Medications as instructed. Tylenol Extra Strength [id number] as directed for pain. Alternate ice packs and heating pads as needed for pain. Avoid heavy lifting, pushing, pulling, twisting, repetitive motions, standing for extended periods of time, and sitting for extended periods of time 3-[address] your wallet in your back pocket while sitting or riding in a car. Follow-up with your family practitioner for recheck as an outpatient if no improvement in symptoms in 7-10 days. Return to the emergency department for worsened symptoms, bowel incontinence, bladder incontinence, inability to stand, numbness of the genitals, or any other concerns. Scripts Meloxicam (Mobic) 15 Mg Tablet 15 MG PO DAILY, #10 TAB 0 Refills Prov: RASHARD VINCENT 01/26/19 Orphenadrine Citrate (Orphenadrine Citrate) 100 Mg Tablet.er 100 MG PO BID PRN for SPASMS, #10 TAB 0 Refills Prov: RASHARD VINCENT 01/26/19 Prednisone (Prednisone) 20 Mg Tab 40 MG PO DAILY, #10 TAB 0 Refills Prov: RASHARD VINCENT 01/26/19 RASHARD VINCENT Jan 26, 2019 15:56
[2019-01-26] MEDS ORDERED: ORPH100T PO (16:04)
[2019-01-26] MEDS ORDERED: MELO15TA14 PO (16:04)
[2019-01-26] MEDS ORDERED: PRD20T PO (16:04)
[2019-01-26 16:15] VITALS: BP 136/92
== END 2019-01-26 16:19 | disposition home or self-care (01) ==
LOC: EDUNIT# 14:36 → ER 14:37
DX: M54.16 Radiculopathy, lumbar region (principal); Z86.72 Personal history of thrombophlebitis; Z79.52 Long term (current) use of systemic steroids; Z77.22 Contact with and (suspected) exposure to environmental tobacco smoke (acute) (chronic)
CPT/HCPCS: 80306; 81000; 99283